=== PATIENT | male | born 1960 | race Caucasian/White ===

== ENCOUNTER 2019-02-20 12:44 | Emergency (ER) | payer OTHER ==
[~2019-02-20] VITALS: Ht 190.5 cm; Wt 95.3 kg
[~2019-02-20 12:44] MED LIST: CORTISONE25 MG; PREDNISONE10 MG; PROTONIX20 MG PO; ULORIC PO
== END 2019-02-20 16:12 | disposition home or self-care (01) ==
LOC: ER 12:44
DX: M62.838 Other muscle spasm (principal)

== ENCOUNTER 2020-12-13 19:39 | Emergency (ER) | payer OTHER ==
[~2020-12-13] VITALS: Ht 188 cm; Wt 104.3 kg
[2020-12-13] MEDS ORDERED: TRAMADOR (20:14)
[2020-12-13] MEDS ORDERED: [UNRECOGNIZED DRUG - OTHER] (20:15)
[2020-12-13] MEDS ORDERED: ZOFRAN8 MG PO (23:47)
== END 2020-12-13 23:44 | disposition home or self-care (01) ==
LOC: ER 19:39
DX: K29.70 Gastritis, unspecified, without bleeding (principal)